=== PATIENT | male | born 1970 | race Two or more races ===

== ENCOUNTER 2024-06-07 07:54 | Outpatient (RCR) | payer MEDICAID, SELFPAY ==
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
== END 2024-06-14 23:59 | disposition home or self-care (01) ==
LOC: CPTX 07:54
PROVIDERS: PCP Nurse Practitioner Family; Referring Provider Nurse Practitioner Family; Visit Provider Nurse Practitioner Family
DX: M25.562 Pain in left knee (principal); R26.2 Difficulty in walking, not elsewhere classified; R26.89 Other abnormalities of gait and mobility; G89.29 Other chronic pain
CPT/HCPCS: 97162

== ENCOUNTER 2024-08-09 13:30 | Outpatient (RCR) | payer MEDICAID, SELFPAY ==
--- NOTE | 2024-07-26 15:06 | PT.ODAYNRPT ---
PT Outpatient Daily Note OP Daily Note Outpatient Physical Therapy Treatment Date: 07/26/24 Subjective: Pt's knee continues to hurt. No change in pain since eval. Objective: Please see flow chart for list of ther ex ex performed Assessment: poor tolerance to exercises due to pain; patient able to complete instructed reps Plan: Continue with PT Length of Time (minutes) of Treatment: 30 Minutes Procedure Charges Therapeutic Exercise 30 minutes: Yes
--- NOTE | 2024-08-09 14:16 | PT.ODAYNRPT ---
PT Outpatient Daily Note OP Daily Note Outpatient Physical Therapy Treatment Date: 08/09/24 Subjective: Pt's knee continues to hurt and has limitation with walking. Objective: Please see flow chart for list of ther ex performed Assessment: able to tolerate sci fit exercise today, however, no change in pain post PT session Plan: Continue with PT Length of Time (minutes) of Treatment: 30 Minutes Procedure Charges Therapeutic Exercise 30 minutes: Yes
== END 2024-08-12 23:59 | disposition home or self-care (01) ==
LOC: CPTX 13:30
PROVIDERS: PCP Nurse Practitioner Family; Referring Provider Nurse Practitioner Family; Visit Provider Nurse Practitioner Family
DX: M25.562 Pain in left knee (principal); R26.2 Difficulty in walking, not elsewhere classified; R26.89 Other abnormalities of gait and mobility; G89.29 Other chronic pain
CPT/HCPCS: 97110

== ENCOUNTER 2024-08-16 08:15 | Outpatient (RCR) | payer MEDICAID, SELFPAY ==
--- NOTE | 2024-08-16 08:59 | PT.ODAYNRPT ---
PT Outpatient Daily Note OP Daily Note Outpatient Physical Therapy Treatment Date: 08/16/24 Visit Reasons: Bilateral knee pain Subjective: Pt's knee is catching more and notice some edema post activities. Objective: Please see flow chart for list of ther ex perfomed Assessment: progressing with knee AROM, however, minimal change in pain. Plan: Continue with PT Length of Time (minutes) of Treatment: 30 Minutes Procedure Charges Therapeutic Exercise 30 minutes: Yes
--- NOTE | 2024-09-02 13:18 | PT.ODS1RPT ---
PT OP Progress/Discharge Note Date of Service: 09/02/24 Progress Note/DC Note Progress Note/Discharge Note: DC Note Patient Information Visit Reasons: Bilateral knee pain Service Discharge Date: 09/02/24 Status Assessment: Pt has been seen for 4 visits (eval + 3 visits). Pt last treated on 08/16/24. Pt no showed multiple appts (06/21, 08/18, and 08/23). At this time Pt will be d/c from care due to non-compliance per attendance policy. Pt did not meet set goals in therapy; thank you for your referrals.
== END 2024-09-12 23:59 | disposition home or self-care (01) ==
LOC: CPTX 08:15
PROVIDERS: PCP Nurse Practitioner Family; Referring Provider Nurse Practitioner Family; Visit Provider Nurse Practitioner Family
DX: M25.562 Pain in left knee (principal); R26.2 Difficulty in walking, not elsewhere classified; R26.89 Other abnormalities of gait and mobility; G89.29 Other chronic pain
CPT/HCPCS: 97110

== ENCOUNTER → 2024-10-28 | Outpatient (CLI) | payer MEDICAID, SELFPAY ==
--- NOTE | 2024-10-28 15:00 | XR_ITS ---
Exam: MRI knee without contrast, left Date and time of exam: October 28, 2024 1603 hours INDICATIONS: Anterior posterior knee pain unable to bear weight on the knee joint locking stiffness and swelling beginning 3 years ago Technique: Multiple axial, coronal, and sagittal sections on the knee have been obtained. T2-Weighted sagittal, fat-suppressed images, TR 3,500, TE 62, T2 weighted coronal fat-saturated images, TR 3,500, TE 62 Proton density sagittal sections, TR 1800, TE 31. T-1 weighted coronal images, TR 524, TE 13.0 Findings: Medial meniscus anterior horn intact. Medial meniscus, body peripheral horizontal linear tear. Posterior horn medial meniscus large horizontal linear tear communicating inferior articular surface near the inner margin sagittal image 8. Lateral meniscus anterior horn is intact Lateral meniscus, body is intact Posterior horn lateral meniscus peripheral oblique linear tear sagittal image 21 Anterior cruciate ligament high-grade sprain Posterior cruciate ligament appears intact. Knee effusion is large. Quadriceps and patellar tendons appear intact. There is no evidence of tendinosis. Inflammatory change or fracture of Hoffa's fat pad is not seen. Medial patellar facet demonstrates moderate thinning. Lateral patellar facet cartilage demonstrates moderate thinning. Trochlear cartilage demonstrates moderate thinning. Marrow signal abnormal medial femoral condyle, 17 mm focus osteochondritis dissecans, coronal image 13 sagittal image 9. Medial collateral ligament appears intact. No meniscocapsular separation is seen. Illiotibial band and fibular collateral ligament are intact. Biceps femoris tendons appear intact. Medial femoral condylar articular cartilage demonstrates moderate thinning. Lateral femoral condylar articular cartilage demonstratesmoderate thinning. Tibial plateau cartilage demonstrates moderate thinning. 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
== END | disposition home or self-care (01) ==
PROVIDERS: PCP Nurse Practitioner Family; Referring Provider Orthopaedic Surgery; Visit Provider Orthopaedic Surgery
DX: M93.262 Osteochondritis dissecans, left knee (principal); S83.282A Other tear of lateral meniscus, current injury, left knee, initial encounter; S83.242A Other tear of medial meniscus, current injury, left knee, initial encounter; S83.512A Sprain of anterior cruciate ligament of left knee, initial encounter; X58.XXXA Exposure to other specified factors, initial encounter
CPT/HCPCS: 73721

== ENCOUNTER → 2025-04-27 | Outpatient (CLI) | payer MEDICAID, SELFPAY ==
--- NOTE | 2025-04-27 08:00 | XR_ITS ---
Examination: MRI lumbar spine without contrast Date and time of exam: April 27, 2025, 0826 hours INDICATIONS: Low back pain radiating down the left leg 3 months Technique: Multiple MRI axial and sagittal sections lumbar spine. Sagittal T2-weighted images, TR 3500, TE 118 T1 weighted transverse sections, TR 688 T8.5, T2-weighted sagittal sections T1 weighted sagittal sections TR 621, TE 30 T2 axial sections, TR 4, 190, TE 84. Findings: Satisfactory alignment lumbar vertebral bodies Mild to moderate diffuse lumbar disc narrowing most prominent at L3-L4, L4-L5 Diffuse lumbar disc desiccation No spondylolisthesis L5-S1 6 mm central lumbar disc bulge displacing both the right and left S1 nerve roots and producing mild bilateral L5 ganglionic compression L4-L5 8 mm central lumbar disc bulge indenting the ventral margin thecal sac L3-L4 2 mm central lumbar disc bulge L2-L3 2 mm central lumbar disc bulge L1-L2 no disc protrusion IMPRESSION: L5-S1 6 mm central lumbar disc bulge displacing the right and left S1 nerve roots and producing mild bilateral L5 ganglionic compression L4-L5 8 mm central lumbar disc bulge indenting ventral margin thecal sac
== END | disposition home or self-care (01) ==
LOC: SMRI 07:48
PROVIDERS: PCP Nurse Practitioner Family; Referring Provider Nurse Practitioner Family; Visit Provider Nurse Practitioner Family
DX: M51.370 Other intervertebral disc degeneration, lumbosacral region with discogenic back pain only (principal); M51.360 Other intervertebral disc degeneration, lumbar region with discogenic back pain only; G95.29 Other cord compression
CPT/HCPCS: 72148